=== PATIENT | male | born 1955 | race Caucasian/White ===

== ENCOUNTER 2016-08-30 07:57 | Emergency (ER) | payer BC, OTHER ==
[~2016-08-30] VITALS: Ht 170.2 cm; Wt 100.0 kg
[~2016-08-30 07:57] MED LIST: IBUP-238 PO; LISI-360 PO; PERC5TAB12 PO
[2016-08-30 07:59] VITALS: BP 155/81; PULSE 81; RESP 15; TEMP 97.9; O2SAT 97
--- NOTE | 2016-08-30 08:25 | PD ---
HPI Chief Complaint: Laceration/Skin Injury Time Seen by Provider: 08:25 Travel History International Travel<30 days: No Contact w/Intl Traveler<30days: No Traveled to known affect area: No History of Present Illness HPI 61-year-old right-hand dominant male with PMH of hypertension, hyperlipidemia presents to the ED for evaluation of laceration of left index finger. Patient states that he was using a gear grinder at work, his finger brushed the grinding wheel. He denies getting his hand caught in the wheel or any bony injury. He denies numbness, tingling, weakness, limitations to range of motion of the left hand. Denies previous injury to the left hand. Last tetanus immunization within 5 years. PFSH Past Medical History Cardiovascular Problems: Yes (STRESS TEST NEG 2007) High Cholesterol: Yes Diminished Hearing: No Genitourinary: Yes (PROSTATE ENLARGEMENT) Hypertension: Yes Musculoskeletal: No Neurologic: Yes Reproductive: No Respiratory: No Migraines: Yes Past Surgical History Appendectomy: Yes Oral Surgery: Yes (WISDOM TOOTH EXTRACTIONS) Tonsillectomy: Yes (ADNOIDS) Other Surgery: Yes ( FAT CYST REMOVED FROM BACK) Social History Alcohol Use: Yes (OCCASIONALLY) Tobacco Use: Yes (< 1 PPD) Substance Use: No Allergies-Medications (Allergen,Severity, Reaction): Coded Allergies: Codeine (Verified Allergy, Severe, Anaphylaxis, 08/30/16) Uncoded Allergies: UNKNOWN ANTIBIOTIC (Allergy, Severe, 09/07/10) Reported Meds & Prescriptions Reported Meds & Active Scripts Active Ibuprofen 800 Mg Tab 800 Mg PO Q8H PRN Review of Systems Except as stated in HPI: all other systems reviewed are Neg Physical Exam Narrative GENERAL: Well-nourished, well-developed white male in no acute distress. SKIN: Warm and dry. There is a 1 cm abrasion of the radial aspect of the distal tip of the second finger, just proximal to the nail bed. There is a subcentimeter laceration associated with this abrasion, just proximal to the nail bed. There is a 1 cm laceration just distal to the PIP joint of the third finger, radial aspect. HEAD: Normocephalic. EYES: No scleral icterus. No injection or drainage. NECK: Supple, trachea midline. No JVD or lymphadenopathy. CARDIOVASCULAR: Regular rate and rhythm without murmurs, gallops, or rubs. RESPIRATORY: Breath sounds equal bilaterally. No accessory muscle use. GASTROINTESTINAL: Abdomen soft, non-tender, nondistended. MUSCULOSKELETAL: No cyanosis, or edema. FOCUSED LEFT UPPER EXTREMITY EXAM: No tenderness to palpation of the joints of the second and third fingers. Patient maintains full, active range of motion of the digits of the left hand. 2+ radial pulse. Cap refill less than 2 seconds. The patient intact to light touch distally. BACK: Nontender without obvious deformity. No CVA tenderness. Data Data Last Documented VS Vital Signs Date Time Temp Pulse Resp B/P Pulse Ox O2 Delivery O2 Flow Rate FiO2 08/30/16 07:59 97.9 81 15 155/81 97 Orders Lidocaine 1% Inj (50 Ml) (Xylocaine 1% I (08/30/16 08:45) [facility] Medical Decision Making Medical Screen Exam Complete: Yes Emergency Medical Condition: Yes Differential Diagnosis Abrasion versus laceration versus nail avulsion versus musculoskeletal pain versus other Narrative Course 61-year-old right-hand dominant male with PMH of hypertension, hyperlipidemia presents to the ED for evaluation of laceration of left index finger. Patient states that he was using a gear grinder at work, his finger brushed the grinding wheel. He denies getting his hand caught in the wheel or any bony injury. He denies numbness, tingling, weakness, limitations to range of motion of the left hand. Vitals reviewed. Physical exam reveals an abrasion to the distal tip of the index finger and a laceration to the PIP of the third finger. No tenderness to palpation of the distal tips of the fingers or limitations to range of motion. Cap refill less than 2 seconds. Laceration repair was performed. Please see my procedure note for details. Patient was advised to keep the wound clean, dry, covered, monitor for signs of infection, return for suture removal in 7-10 days, follow-up with the worker's comp office at his place of employment. He was provided with a brief course of 800 mg ibuprofen. The patient indicated understanding of the instructions and is amenable to plan of care. He is stable and discharged home. Procedures Procedure Narrative LACERATION LOCATION: Distal index finger, radial aspect LENGTH: 1 cm NUMBER OF STITCHES/ASHLEY: 1 REPAIR: The area of the laceration was prepped with Betadine and sterilely draped. A digital block was performed with 1% lidocaine. The wound was copiously irrigated and explored without evidence of foreign body, tendon injury or neurovascular injury. The wound was closed using 4-0 Prolene. This was a single layer repair. A sterile dressing was applied. The patient was advised to keep the dressing clean and dry. Patient tolerated the procedure well. LACERATION LOCATION: Radial aspect, PIP joint, third finger left hand LENGTH: 1 cm NUMBER OF STITCHES/ASHLEY: 3 REPAIR: The area of the laceration was prepped with Betadine and sterilely draped. A digital block was performed with 1% lidocaine. The wound was copiously irrigated and explored without evidence of foreign body, tendon injury or neurovascular injury. The wound was closed using 4-0 Prolene. This was a single layer repair. A sterile dressing was applied. The patient was advised to keep the dressing clean and dry. Patient tolerated the procedure well. Diagnosis Primary Impression: Laceration of finger of left hand Qualified Code: S61.219A - Laceration of finger of left hand, initial encounter Referrals: Primary Care Physician Patient Instructions: Facial Laceration (ED), General Instructions Departure Forms: Tests/Procedures, Work Release Enter return to work date: Sep 02, 2016 Additional Instructions: Rest, hydrate. Keep the dressing that was applied today on for the next 48 hours. After that removed the dressing, wash the wound gently with warm soapy water. Pat the wound dry, without air dried 5-10 minutes. Apply a thin layer of antibiotic ointment, read cover with a clean dry dressing. Monitor for signs of infection as discussed. Elevating the extremity will help with throbbing and swelling. 800 mg ibuprofen up to 3 times a day as needed for pain. Suture removal in 7-10 days either at the primary care or here in the ED. Follow-up with the PCP as instructed by your workers comp. Return to the ED for any urgent or emergent medical condition. Scripts Ibuprofen 800 Mg [id number] Mg PO Q8H PRN (Pain/Inflammation) #15 TAB Ref 0 Prov:Rikki Doshi MD 08/30/16 Disposition: 01 DISCHARGE HOME Condition: Stable Gem Greer Aug 30, 2016 08:25
[2016-08-30] MEDS ORDERED: LIDOCAINE HCL 1% 50 ML VIAL INFIL ONE (08:45)
[2016-08-30] MEDS ORDERED: IBUP800T23 PO (09:28)
== END 2016-08-30 09:45 | disposition home or self-care (01) ==
LOC: NEPB 07:57
DX: S61.211A Laceration without foreign body of left index finger without damage to nail, initial encounter (principal); I10 Essential (primary) hypertension; E78.00 Pure hypercholesterolemia, unspecified; F17.210 Nicotine dependence, cigarettes, uncomplicated; W31.1XXA Contact with metalworking machines, initial encounter; Y93.9 Activity, unspecified; Y92.9 Unspecified place or not applicable; Y99.9 Unspecified external cause status
CPT/HCPCS: 12001